=== PATIENT | male | born 1955 | race Caucasian/White ===

== ENCOUNTER → 2016-09-09 | Outpatient (CLI) | payer MEDICARE ==
[~2016-09-09] MED LIST: AMARYL2 MG PO; BACLOFEN10 MG PO; BAYER CHEWABLE81 MG PO; BUMETANIDE2 M1 PO; BUSPAR15 MG PO; COUMADIN PO; COUMADIN6 MG PO; COUMADIN7.5 MG PO; DIGITEK125 MCG PO; DOXEPIN HCL25 MG PO; FISH OIL500 M1 PO; FLOMAX0.4 M1 PO; GLUCOPHAGE500 MG PO; HYDROCODONE-APA1 T44 PO; HYDROCORTISONE CREAM TOP; HYDROXYZINE HCL25 M1 PO; LORTAB 5/500 TA1 TA1 PO; METFORMIN PO; METOPROLOL TART25 MG PO; NEURONTIN600 MG PO; PANTOPRAZOLE SO40 MG PO; PAROXETINE HCL20 MG PO; PAXIL30 MG PO; PHENERGAN PO; PRILOSEC20 MG PO; XANAX0.5 MG PO; XIFAXAN550 MG PO; [UNRECOGNIZED DRUG - REMARK]
--- NOTE | ~2016-09-09 | CT98 ---
STS. [facility] A Service of [facility] RADIOLOGY TEXT RESULTS PATIENT: KELLY BRAXTON LOCATION: [facility] : 51 UNIT #: [id number] AGE: [address]: RADHA SCHMITT SEX: M ORDER DR: [id number] [place] [id number] O MR#: [id number] Acc #: [id number] NAME: KELLY BRAXTON : 1955 SEX: M STUDY DATE/TIME: 09/09/2016 14:21 UNIT: [facility] ROOM: STUDY DESCRIPTION: CT Lumbar Spine Wo Cont Attending Physician: Karen Schmitt Aprn Referring Physician: Karen Schmitt Aprn Ordering Physician: Staff Doctor Not On Primary Care Physician: Bonnie Lux M.D. MEDICAL IMAGING REPORT This report is preliminary unless electronic signature is present. EXAM Lumbar spine CT, no contrast. DATE OF EXAM 09/09/2016 PROCEDURE Axial lumbar spine CT without contrast with multiplanar reformats. This CT exam was performed with one or more of the following radiation dose reduction techniques: automatic exposure control, adjustment of mA and/or kV according to patient size, and iterative reconstruction. COMPARISON None. CLINICAL HISTORY Low back pain for 22 years. FINDINGS There is a slight grade 1,5-1 retrolisthesis. Alignment is otherwise normal. There is no fracture or bone erosion or destruction at any level. Paraspinous tissues are remarkable for what appears to be a small nonobstructing stone, 2-3 mm, in the left renal tlo-qk-qafhf pole. At L1-2 there is a slight disc bulge without substantial canal stenosis, though there may be mild bilateral foraminal narrowing. At L2-3, there is a disc bulge and facet arthropathy with losn-rv-xlzmsizl canal stenosis. There is moderate right and upxv-fb-buzeoimp left foraminal stenosis. At 3-4, there is disc and endplate change and facet arthropathy and moderate or even moderate to severe canal stenosis, and moderate or STS. [facility] A Service of [facility] RADIOLOGY TEXT RESULTS PATIENT: KELLY BRAXTON LOCATION: [facility] : 51 UNIT #: [id number] AGE: [address]: RADHA SCHMITT SEX: M ORDER DR: moderate to severe right and moderate to severe left foraminal stenosis. At 4-5, there is zdet-hz-dxdmqdth or moderate canal stenosis and cdfc-af-wxpmewdt right and moderate or moderate to severe left foraminal stenosis. At 5-1, there is no canal stenosis but moderate to severe or severe left and right foraminal stenosis. IMPRESSION Multilevel lumbar degenerative change with canal and foraminal stenosis. At each level, this appears to be on the basis of chronic degenerative change. See above for level by level details. Suspect left renal 2-3 mm nonobstructing mlr-oa-tpnao pole stone. Dictated by... Rienaldo Lopez M.D. THIS IS AN ELECTRONICALLY VERIFIED REPORT Reinaldo Lopez M.D. at 09/11/2016 3:58 PM GEO/caroline TD: 09/09/2016 22:10 JOB #: [id number] MEDICAL IMAGING REPORT Page 1 of 1
--- NOTE | ~2016-09-09 | CT52 ---
STS. [facility] A Service of [facility] RADIOLOGY TEXT RESULTS PATIENT: KELLY BRAXTON LOCATION: [facility] : 51 UNIT #: [id number] AGE: [address]: RADHA SCHMITT SEX: M ORDER DR: [id number] [place] [id number] O MR#: [id number] Acc #: [id number] NAME: KELLY BRAXTON : 1955 SEX: M STUDY DATE/TIME: 09/09/2016 14:17 UNIT: [facility] ROOM: STUDY DESCRIPTION: CT Cervical Spine Wo Cont Attending Physician: Karen Schmitt Aprn Referring Physician: Karen Schmitt Aprn Ordering Physician: Physician Non-Staff Primary Care Physician: Bonnie Lux M.D. MEDICAL IMAGING REPORT This report is preliminary unless electronic signature is present. EXAM Cervical spine CT, no contrast, 09/09/2016 PROCEDURE Axial cervical spine CT without contrast, with multiplanar reformats. This CT exam was performed with one or more of the following radiation dose reduction techniques: Automatic exposure control, adjustment of mA and/or kV according to patient size, and iterative reconstruction. COMPARISON None. CLINICAL HISTORY 22-year history of neck and back pain. FINDINGS There is a slight scoliosis but no edwar- or retrolisthesis. There are discogenic and lesser facet degenerative changes but no fracture or bone erosion or destruction. The paraspinous soft tissues are remarkable for atherosclerotic vascular calcifications at the carotid bifurcations. At 2-3, there is minimal canal narrowing and mild left and no right foraminal narrowing. At 3-4, there is canal stenosis and moderate bilateral foraminal narrowing. At 4-5, there is canal stenosis and probably at least mild cord compression and moderate bilateral foraminal stenosis. At 5-6, there is again canal stenosis and probably some element of cord compression, and mild left and moderate right foraminal stenosis. At 6-7, there is minimal canal stenosis and mild left and crva-he-dosrsygj STS. [facility] A Service of [facility] RADIOLOGY TEXT RESULTS PATIENT: KELLY BRAXTON LOCATION: [facility] : 51 UNIT #: [id number] AGE: [address]: RADHA SCHMITT SEX: M ORDER DR: right foraminal stenosis. At 7-1, the canal and foramina are normal. IMPRESSION Degenerative changes as above. No acute abnormality. Dictated by... Reinaldo Lopez M.D. THIS IS AN ELECTRONICALLY VERIFIED REPORT Reinaldo Lopez M.D. at 09/11/2016 3:58 PM TEV/psc TD: 09/09/2016 22:05 JOB #: [id number] MEDICAL IMAGING REPORT Page 1 of 1
== END | disposition home or self-care (01) ==
LOC: SCT 13:50
DX: M50.30 Other cervical disc degeneration, unspecified cervical region (principal); M51.36 Other intervertebral disc degeneration, lumbar region; M47.892 Other spondylosis, cervical region; M47.896 Other spondylosis, lumbar region; M48.06 Spinal stenosis, lumbar region; M48.02 Spinal stenosis, cervical region
CPT/HCPCS: 72125; 72131